=== PATIENT | female | born 1960 | race Caucasian/White ===

== ENCOUNTER 2017-07-27 11:05 | Inpatient (IN) | payer OTHER ==
[2017-07-27 19:25] VITALS: BMI 22.9
[2017-07-29 14:06] VITALS: PULSE 135
[2017-07-29 15:00] VITALS: BP 117/58
[2017-07-29 15:03] VITALS: TEMP 98.6
== END 2017-07-29 18:25 | disposition left against medical advice (07) | DRG 201 ==
LOC: JER 11:05 → JERBED 14:38 → J4W 18:21
PROVIDERS: ADMIT Family Medicine; ATTEND Internal Medicine
DX: I48.0 Paroxysmal atrial fibrillation (principal); I48.92 Unspecified atrial flutter; I11.9 Hypertensive heart disease without heart failure; E78.5 Hyperlipidemia, unspecified; R74.0 Nonspecific elevation of levels of transaminase and lactic acid dehydrogenase [LDH]; I47.1 Supraventricular tachycardia; I45.10 Unspecified right bundle-branch block
CPT/HCPCS: 36415; 71045-TC-FY; 80053; 80061; 80076; 82550; 82553; 83721; 83735; 84443; 84484; 85025; 85610; 93005; 93010; 93971-TC; 94761; 99285-25; A9502; C1887; J7030